=== PATIENT | male | born 1970 | race Hispanic/Latino ===

== ENCOUNTER → 2020-09-27 | Outpatient (CLI) | payer OTHER | END | disposition home or self-care (01) | LOC: RAH 14:13 | PROVIDERS: ATTEND Urology | DX: N20.0 Calculus of kidney (principal); R31.29 Other microscopic hematuria | CPT/HCPCS: 74018; 76100 ==

== ENCOUNTER 2020-11-07 12:54 | Day surgery (SDC) | payer OTHER ==
[2020-11-02 13:43] LABS: HEMATOCRIT 44.3 % (42-54); MEAN CORPUSCULAR HEMOGLOBIN 29.9 pg (27.0-33.0); MEAN CORPUSCULAR HGB CONC 33.9 g/dL (32.0-36.0); MEAN CORPUSCULAR VOLUME 88.4 fL (79-99); RED BLOOD CELL COUNT(AUTO) 5.01 MIL/uL (4.50-6.20); RED CELL DISTRIBUTION WIDTH 12.7 % (11.0-15.5); WHITE BLOOD COUNT (AUTO) 10.6 K/uL (4.8-10.8)
[2020-11-02 13:47] LABS: APPEARANCE,URINE Clear (CLEAR); BILIRUBIN,URINE Negative (NEGATIVE); COLOR,URINE Yellow (YELLOW); GLUCOSE, URINE (UA) >=1000 mg/dL (NEGATIVE); KETONES,URINE Negative (NEGATIVE); LEUKOCYTE ESTERASE ,URINE Negative (NEGATIVE); NITRATE,URINE Negative (NEGATIVE); OCCULT BLOOD,URINE Small (NEGATIVE); PH,URINE 7.5 (5.0-8.0); PROTEIN,URINE Negative (NEGATIVE)
[2020-11-02 13:52] LABS: BACTERIA,URINE Rare /HPF (None Seen); SQUAMOUS EPITHELIAL CELL,UR Rare /HPF (0-2); WBC,URINE 0-1 /HPF (0-1)
[2020-11-02 13:53] LABS: INR 1.03 (0.85-1.15); PROTHROMBIN TIME 11.2 SEC (9.6-11.6)
[2020-11-02 13:54] LABS: PARTIAL THROMBOPLASTIN TIME 29.6 SEC (26.3-35.5)
[2020-11-02 13:56] LABS: ALBUMIN 4.1 g/dL (3.5-5.0); BILIRUBIN,TOTAL 0.7 mg/dL (0.2-1.0); POTASSIUM 3.5 mmol/L (3.5-5.1); TOTAL PROTEIN, SERUM 7.8 g/dL (6.0-8.3)
[2020-11-06 09:58] VITALS: BP 138/86
[2020-11-07] VITALS (17 sets, daily range): BP systolic 121–136; BP diastolic 72–89
[~2020-11-07] VITALS: Ht 160 cm; Wt 93.3 kg
[~2020-11-07 12:54] MED LIST: 0.9%NACL 1000ML 1,000 ML IV ONE; AMLO-258 PO; ATOR40TA71 PO; CEFAZOLIN SODIUM 1 GM VIAL IVP ONE; CEFAZOLIN SODIUM 1 GM VIAL ONE; CHOL-34 PO; FISH1CAP20 PO; GLIM1TAB18 PO; LACTATED RINGERS 1000ML 1,000 ML IV SCH; LOSA100T58 PO; METF-446 PO; MIRT-22 PO; NALT50TA PO
[2020-11-07] MEDS ORDERED: DEXAMETHASONE SOD PHOSPHATE 10MG/ML 1ML VIAL ONE (14:08)
[2020-11-07] MEDS ORDERED: GLYCOPYRROLATE 1 MG/5 ML SYRINGE ONE (14:08)
[2020-11-07] MEDS ORDERED: LIDOCAINE PF 100MG/5ML (2%) SYRINGE 5ML ONE (14:08)
[2020-11-07] MEDS ORDERED: SUCCINYLCHOLINE CHLORIDE 20 MG/ML 10 ML VIAL ONE (14:08)
[2020-11-07] MEDS ORDERED: ONDANSETRON 4MG INJ ONE (14:08)
[2020-11-07] MEDS ORDERED: NEOSTIGMINE 5MG/5ML SYR IV ONE (14:09)
[2020-11-07] MEDS ORDERED: MIDAZOLAM HCL 1 MG/ML 2ML VIAL ONE (14:09)
[2020-11-07] MEDS ORDERED: ROCURONIUM 10MG/1ML SYR 10 MG/ML ML ONE (14:09)
[2020-11-07] MEDS ORDERED: FENTANYL CITRATE PF 50 MCG/1 ML 2ML VIAL ONE ×2 (14:09→15:07)
[2020-11-07] MEDS ORDERED: PROPOFOL 10 MG/ML 20ML VIAL IV ONE (14:09)
[2020-11-07] MEDS ORDERED: EPHEDRINE SULFATE 50 MG/ML AMPULE ONE (15:02)
== END 2020-11-07 17:15 | disposition home or self-care (01) ==
LOC: DAH 12:54
PROVIDERS: ATTEND Urology
DX: N20.0 Calculus of kidney (principal); Z20.822 Contact with and (suspected) exposure to COVID-19; I10 Essential (primary) hypertension; E78.5 Hyperlipidemia, unspecified; E66.9 Obesity, unspecified; E11.9 Type 2 diabetes mellitus without complications; Z79.84 Long term (current) use of oral hypoglycemic drugs; Z79.899 Other long term (current) drug therapy; Z79.01 Long term (current) use of anticoagulants; Z98.890 Other specified postprocedural states
CPT/HCPCS: 36415; 50590; 71046; 74018; 76100; 80053; 81001; 82948 ×2; 85027; 85610; 85730; 87088; 87635; 93005; A4215; A4221; A4222; A4223; A4663; C9803; J0330; J0690; J1100; J2001; J2250; J2405; J2704; J2710; J3010 ×2; J3490 ×2; J7030; J7120

== ENCOUNTER → 2020-11-22 | Outpatient (CLI) | payer OTHER ==
[~2020-11-22] MED LIST changes: -0.9%NACL 1000ML 1,000 ML IV ONE; -CEFAZOLIN SODIUM 1 GM VIAL IVP ONE; -CEFAZOLIN SODIUM 1 GM VIAL ONE; -LACTATED RINGERS 1000ML 1,000 ML IV SCH
== END | disposition home or self-care (01) ==
LOC: RAH 12:27
PROVIDERS: ATTEND Urology
DX: N20.0 Calculus of kidney (principal)
CPT/HCPCS: 74018; 76100